=== PATIENT | male | born 1970 | race Caucasian/White ===

== ENCOUNTER 2023-08-21 08:55 | Day surgery (SDC) | payer OTHER ==
[2023-08-21] MEDS ORDERED: propofoL 50 ML ONE (09:16)
[2023-08-21] MEDS: Lactated Ringers 1,000 ML IV SCH (09:21)
[2023-08-21] MEDS ORDERED: Propofol 200 MG/20 ML SDV ONE (09:49)
== END 2023-08-21 10:55 | disposition home or self-care (01) ==
LOC: MW.SDS 08:55
PROVIDERS: ATTEND Surgery
DX: Z12.11 Encounter for screening for malignant neoplasm of colon (principal); D12.0 Benign neoplasm of cecum; D12.6 Benign neoplasm of colon, unspecified; I10 Essential (primary) hypertension; E78.00 Pure hypercholesterolemia, unspecified; K21.9 Gastro-esophageal reflux disease without esophagitis; E66.9 Obesity, unspecified; Z68.31 Body mass index [BMI] 31.0-31.9, adult; Z87.891 Personal history of nicotine dependence; Z79.899 Other long term (current) drug therapy
CPT/HCPCS: 45380; 45385; J2704; J7120; 00811

== ENCOUNTER 2024-08-23 10:29 | Emergency (ER) | payer OTHER | END 2024-08-23 11:24 | disposition home or self-care (01) | LOC: MW.ED 10:29 | DX: H10.9 Unspecified conjunctivitis (principal); I10 Essential (primary) hypertension; E78.00 Pure hypercholesterolemia, unspecified; K21.9 Gastro-esophageal reflux disease without esophagitis; Z79.899 Other long term (current) drug therapy; Z88.2 Allergy status to sulfonamides | CPT/HCPCS: 99283 ==